=== PATIENT | female | born 1995 ===

== ENCOUNTER 2017-09-30 14:25 | Emergency (ER) | payer OTHER ==
[2017-09-30 14:35] VITALS: BP 115/54; PULSE 85; RESP 18; TEMP 98.2; O2SAT 98
--- NOTE | 2017-09-30 14:51 | ED PDOC ---
HPI: General Adult Chief Complaint (Nursing): ENT Problem Chief Complaint (Provider): ENT Problem History Per: Patient History/Exam Limitations: no limitations Onset/Duration Of Symptoms: Days (x 1 week) Current Symptoms Are (Timing): Still Present Additional Complaint(s): Cassi is a 22 year old female who presents to the Emergency Department complaining of ear pain. Patient states she had left ear pain for the past 2 days with an onset of right ear pain this afternoon. Patient admits to being congested for 1 week. Admits to taking Advil with relief and Tylenol (couple days ago). Denies allergies, asthma and . PMD: No Family Provider Past Medical History Reviewed: Historical Data, Nursing Documentation, Vital Signs Vital Signs: Last Vital Signs Temp 98.2 F 09/30/17 14:32 Pulse 85 09/30/17 14:32 Resp 18 09/30/17 14:32 BP 115/54 L 09/30/17 14:32 Pulse Ox 98 09/30/17 15:05 - Medical History PMH: No Chronic Diseases - Surgical History Surgical History: No Surg Hx - Family History Family History: States: No Known Family Hx - Home Medications Home Medications: Ambulatory Orders Medication Instructions Recorded Amoxicillin 500 mg PO TID #21 tablet 09/30/17 Naproxen 1 tab PO Q12 PRN #14 tab 09/30/17 - Allergies Allergies/Adverse Reactions: Allergies Allergy/AdvReac Type Severity Reaction Status Date / Time No Known Allergies Allergy Verified 09/30/17 14:32 Review of Systems ROS Statement: Except As Marked, All Systems Reviewed And Found Negative ENT: Positive for: Ear Pain (Bilateral) Physical Exam - Reviewed Nursing Documentation Reviewed: Yes Vital Signs Reviewed: Yes - Physical Exam Appears: Positive for: Non-toxic Head Exam: Positive for: ATRAUMATIC, NORMAL INSPECTION, NORMOCEPHALIC Skin: Positive for: Normal Color Eye Exam: Positive for: Normal appearance ENT: Positive for: TM Is/Are (Left- Erythematous), Other (Right Ear - Cerumen ) Neck: Positive for: Normal Respiratory: Positive for: Normal Breath Sounds. Negative for: Respiratory Distress Extremity: Positive for: Normal ROM Neurologic/Psych: Positive for: Alert, Oriented - ECG O2 Sat by Pulse Oximetry: 98 (RA) Pulse Ox Interpretation: Normal Medical Decision Making Medical Decision Making: Time: 14:51 Plan: - Ear Wax Removal (Performed by Sanchez Frazier PA-C) Time: 14:54 Upon provider evaluation patient is medically stable, and requires no further treatment in the ED at this time. Patient will be discharged with Rx for Amoxicillin and Naproxen. Counseling was provided and all questions were answered regarding diagnosis and need for follow up with local clinic. There is agreement to discharge plan. Return if symptoms persist or worsen. Scribe Attestation: Documented by Josh Fischer, acting as a scribe for Sanchez Frazier PA-C Provider Scribe Attestation: All medical record entries made by the Scribe were at my direction and personally dictated by me. I have reviewed the chart and agree that the record accurately reflects my personal performance of the history, physical exam, medical decision making, and the department course for this patient. I have also personally directed, reviewed, and agree with the discharge instructions and disposition. Disposition - Clinical Impression Clinical Impression: Cerumen impaction, Otitis media - Patient ED Disposition Is Patient to be Admitted: No - Disposition Referrals: [facility] [Outside] Disposition: Routine/Home Disposition Time: 14:54 Condition: FAIR Prescriptions: Amoxicillin 500 mg PO TID #21 tablet Naproxen 1 tab PO Q12 PRN #14 tab PRN Reason: Pain, Severe (8-10) Instructions: Cerumen Impaction (ED), Otitis Media (ED) Forms: [employer] ([place]), [facility] ED School/Work Excuse
== END 2017-09-30 15:21 | disposition home or self-care (01) ==
LOC: H.ER 14:25
DX: H92.03 Otalgia, bilateral (principal)